=== PATIENT | female | born 1960 | race Caucasian/White ===

== ENCOUNTER 2024-02-21 10:23 | Emergency (ER) | payer BC ==
[2024-02-21] MEDS: Ketorolac 30 MG/ML SDV IM ONE (11:00)
== END 2024-02-21 14:57 | disposition home or self-care (01) ==
LOC: JP.ED 10:23
DX: S46.912A Strain of unspecified muscle, fascia and tendon at shoulder and upper arm level, left arm, initial encounter (principal); I10 Essential (primary) hypertension; Z90.49 Acquired absence of other specified parts of digestive tract; Z90.710 Acquired absence of both cervix and uterus; Z88.2 Allergy status to sulfonamides; Z79.899 Other long term (current) drug therapy; W10.9XXA Fall (on) (from) unspecified stairs and steps, initial encounter
CPT/HCPCS: 73030; 73200; 76377; 96372; 99284; J1885